=== PATIENT | female | born 1955 | race Caucasian/White ===

== ENCOUNTER → 2016-12-11 | Outpatient (CLI) | payer OTHER ==
[~2016-12-11] MED LIST: AMBIEN10 MG PO; AMOXICILLIN500 M2 PO; ANAPROX DS550 MG PO; ATENOLOL25 MG PO; ATIVAN1 MG PO; AUGMENTIN 875 M1 TAB PO; BENADRYL25 MG PO; BENZONATATE100 M1 PO; CALCIUM500 MG PO; CARAFATE1 GM PO; CIPRO500 MG PO; CIPRODEX 0.3%-7.5 ML OT; CITALOPRAM20 MG PO; COZAAR100 MG PO; CRESTOR40 MG PO; DARVOCET N 1001 TAB PO; DOXYCYCLINE MO100 MG PO; DUONEB 3 MG/3 ML3 M1 INH; FENOFIBRATE; FENOFIBRATE MI200 MG PO; FLEXERIL10 MG PO; FOSAMAX70 MG/75 M PO; Ferrex 150150 MG PO; IBU800 M1 PO; INDOCIN50 MG PO; LISINOPRIL20 MG PO; LORATADINE10 MG PO; MACROBID100 M1 PO; MELOXICAM15 MG PO; METOPROLOL SR25 MG PO; MIRALAX17 GM/DOSE PO; MIRALAX17 GM/PACK PO; MOTRIN800 MG PO; MYLICON,MYLANTA40 MG PO; Metformin Hydr500 MG PO; NASONEX0.05 MG/AC NS; OMEPRAZOLE MAGN20 M1 PO; PRAVASTATIN SOD40 MG PO; PREDNICOT10 MG PO; PREDNISONE10 MG PO; PREDNISONE20 M1 PO; PROAIR HFA0.09 MG/AC IH; PROAIR HFA8.5 GM INH; PROTONIX40 MG PO; REQUIP0.25 MG PO; REQUIP0.5 MG PO; REQUIP4 MG PO; ROBITUSSIN DM 101 OZ PO; SIMVASTATIN20 MG PO; SINGULAIR10 M1 PO; SINGULAIR10 MG PO; SPIRIVA18 MCG INH; SYMBICORT1 AE1 IH; SYMBICORT1 AE1 INH; SYNTHROID,LEVO75 MCG PO; VICODIN ES 7501 TAB PO; VIRTUSSIN A/C118 ML PO; VISTARIL25 MG PO; VISTARIL50 MG PO; VITAMIN C1 TAB PO; VITAMIN D31000 IU PO; VITAMIN D400 I1 PO; XANAX0.25 MG PO; ZOFRAN ODT8 MG PO; ZOLOFT100 MG PO; [UNRECOGNIZED DRUG - OTHER]
== END | disposition home or self-care (01) ==
LOC: RAD 16:33
DX: M25.551 Pain in right hip (principal)

== ENCOUNTER → 2017-01-22 | Outpatient (CLI) | payer OTHER | END | disposition home or self-care (01) | LOC: RAD 12:31 | DX: M25.552 Pain in left hip (principal) ==

== ENCOUNTER → 2017-03-11 | Outpatient (CLI) | payer OTHER ==
[2017-03-11 07:44] LABS: BASO % 0.9 % (0.0-1.0); EOS # 0.2 10*3/uL (0.0-0.4); EOS % 4.8 % (1.0-4.0); HEMATOCRIT 40.1 % (37.0-47.0); HEMOGLOBIN 12.8 g/dl (12.0-16.0); LYMPH # 1.6 10*3/uL (1.3-4.4); LYMPH % 36.2 % (27.0-41.0); MEAN CELL VOLUME 88.3 fl (81.0-99.0); MEAN CORPUSCULAR HGB 28.2 pg (27.0-31.0); MEAN CORPUSCULAR HGB CONC 31.9 g/dl (33.0-37.0); MEAN PLATELET VOLUME 10.1 fl (9.6-12.3); MONO # 0.6 10*3/uL (0.1-1.0); MONO % 12.7 % (3.0-9.0); NEUT % 44.9 % (47.0-73.0); PLATELET COUNT AUTOMATED 226 10*3/uL (130-400); RED BLOOD COUNT 4.54 10*6/uL (4.10-5.10); RED CELL DISTRI WIDTH 14.6 % (0-14.5); WHITE BLOOD COUNT 4.4 10*3/uL (4.8-10.8)
[2017-03-11 07:53] LABS: HEMOGLOBIN A1c 5.9 % (4.8-5.6)
[2017-03-11 08:11] LABS: ALKALINE PHOSPHATASE 46 U/L (45-117); BILIRUBIN, TOTAL 0.4 mg/dl (0.2-1.0); BUN 22 mg/dl (7-24); CARBON DIOXIDE 28 mmol/L (21-32); CHLORIDE 104 mmol/L (98-107); CHOLESTEROL 171 mg/dL (<200); EST GLOM FILT AFRICAN AMERICAN > 60 ml/min; GLUCOSE 105 mg/dL (65-99); HDL CHOLESTEROL 49 mg/dl (40-60); LDL CHOLESTEROL 84 mg/dL (9-159); POTASSIUM 4.3 mmol/L (3.5-5.1); SGOT/AST 30 IU/L (3-35); SGPT/ALT 28 U/L (12-78); SODIUM 144 mmol/L (136-145); TRIGLYCERIDES 190 mg/dl (<150); VLDL CHOLESTEROL 38 mg/dL (6-40)
== END | disposition home or self-care (01) ==
LOC: LAB 07:00 → CT 08:00
PROVIDERS: Family Medicine Adult Medicine
DX: I10 Essential (primary) hypertension (principal); E66.9 Obesity, unspecified; E03.9 Hypothyroidism, unspecified; F41.9 Anxiety disorder, unspecified; R41.3 Other amnesia; R53.1 Weakness

== ENCOUNTER → 2017-08-04 | Outpatient (CLI) | payer OTHER | END | disposition home or self-care (01) | LOC: ORTHO 03:04 | DX: M16.12 Unilateral primary osteoarthritis, left hip (principal) ==

== ENCOUNTER → 2017-10-01 | Outpatient (CLI) | payer OTHER | END | disposition home or self-care (01) | LOC: RAD 14:13 | DX: J44.9 Chronic obstructive pulmonary disease, unspecified (principal); R09.89 Other specified symptoms and signs involving the circulatory and respiratory systems ==

== ENCOUNTER → 2017-10-26 | Outpatient (CLI) | payer OTHER | END | disposition home or self-care (01) | LOC: RAD 13:12 | DX: M47.896 Other spondylosis, lumbar region (principal); M47.897 Other spondylosis, lumbosacral region; M25.552 Pain in left hip ==

== ENCOUNTER → 2017-11-04 | Outpatient (CLI) | payer OTHER | END | disposition home or self-care (01) | LOC: MRI 11:00 | DX: M25.552 Pain in left hip (principal) ==

== ENCOUNTER → 2017-12-17 | Outpatient (CLI) | payer OTHER | END | disposition home or self-care (01) | LOC: RAD 16:47 | DX: R06.02 Shortness of breath (principal); R07.89 Other chest pain; M54.89 Other dorsalgia ==

== ENCOUNTER 2017-12-29 19:31 | Inpatient (IN) | payer OTHER ==
[~2017-12-29] VITALS: Ht 154.9 cm; Wt 85.5 kg
--- NOTE | ~2017-12-29 | CON ---
[place], [place] REPORT OF CONSULTATION NAME: MARTHA SULTANA [facility] #: [id number] UNIT #: [id number] ROOM: 518 DOCTOR: UMESH ABEBE MDHAFSA BIRTHDATE: [birth year] DOS: 12/31/2017 PULMONARY CONSULTATION EVALUATION AND MANAGEMENT CONSULTATION REQUESTED BY: Sandeep Antony MD REASON FOR CONSULTATION: Ongoing acute exacerbation of COPD/bronchitis and other symptoms, failed outpatient treatment assessment. HISTORY OF PRESENT ILLNESS: This 62-year-old white female patient who has been known with past history of bronchial asthma or COPD. She has been seen in the office in the past, but not seen in the office in 2011. She was last time seen during her hospitalization for consultation in 2012. She has developed symptoms of increased cough, chest congestion and shortness of breath ongoing for about 3 weeks. She has been assessed by the primary care physician, treated with Augmentin initially, later on with another antibiotic as well as intramuscular dexamethasone. She has been seen in the [facility] as well and prescribed another course of antibiotics. The patient was given cough syrup and failed to respond to the treatment, but the symptoms have been noted more with increased frequency and intensity of coughing, shortness of breath as well as chest tightness reported. Cough has been noted with occasional sputum expectoration yellowish in color previously, currently noted as no sputum expectoration. Chest pain was described in the lower back of the chest worsened with deep breathing and excessive coughing. The pain was described moderate to severe on scale of 1-10 up to 7 or 8. It was described to be sharp or dull. REVIEW OF SYSTEMS: CONSTITUTIONAL SYMPTOMS: She has been noted symptoms of fatigue and tiredness. EYES: Denies any burning, redness, or tenderness. EAR, NOSE AND THROAT SYMPTOMS: No sore throat, hoarseness, otalgia, postnasal drainage or epistaxis. CARDIOVASCULAR: Denies angina pain, palpitation, edema or pain of the lower extremity at this time. The patient does have some palpitations previously on admission, which has been resolved. GASTROINTESTINAL: The patient was noted with couple of episodes of vomiting at home. There were no symptoms of nausea at this time. There were no symptoms of abdominal pain. There were no symptoms of hematochezia. GENITOURINARY: No dysuria, suprapubic pain, hematuria. MUSCULOSKELETAL: No acute joint pain, redness, or tenderness. SKIN: Denies abnormal lesions or rashes. CENTRAL NERVOUS SYSTEM: The patient was noted with dizziness previously, which has been resolved. There were symptoms of tingling sensation of the extremities or seizures. Remaining systems were reviewed. They were noted all negative. PAST MEDICAL HISTORY: 1. Known for bronchial asthma, severity unknown. 2. Questionable history of COPD. 3. General anxiety disorder. [place], [place] REPORT OF CONSULTATION NAME: MARTHA SULTANA UNIT #: [id number] ROOM: 518 DOCTOR: UMESH ABEBE MDHAFSA BIRTHDATE: [birth year] 4. Hypothyroidism. 5. Depression. 6. Dyslipidemia. 7. Osteoarthritis. 8. History of restless legs syndrome. PAST SURGICAL HISTORY: 1. Right oophorectomy. 2. Hysterectomy. 3. Cholecystectomy. 4. Cardiac catheterization. SOCIAL HISTORY: The patient is and lives at home, has 2 children. There was no history of alcohol use, illicit drug use. FAMILY HISTORY: The patient's father at 70 years due to complication of coronary artery disease. Mother at 69 due to complications of COPD. CURRENT MEDICATIONS: Administered for the patient was noted as use of Dulera, Requip, hydroxyzine, sertraline, vitamin D, fenofibrate, Singulair, atenolol, levothyroxine, IV Solu-Medrol 60 mg q.8h., Mucinex 1200 mg p.o. b.i.d., Levaquin, lorazepam, and other p.r.n. medications as well. DRUG ALLERGIES: NOTED ALLERGIES TO: 1. SULFA DRUG. 2. BIAXIN. PHYSICAL EXAMINATION: GENERAL: A 62-year-old female, who has been currently noted comfortable at this time, resting, sitting on the bed with nonproductive cough. On assessment, height of 5 feet 1 inch, weight 188 pounds, BMI 35.6. VITAL SIGNS: Recorded as normal temperature, respiratory rate 16-20, heart rate of 65-102, blood pressure 127/75-116/55. Pulse oxygen saturation noted on room air 92% saturation. HEENT: Shows head was atraumatic. Eyes nonicterus. NECK: Supple, short. CARDIOVASCULAR: S1, S2 is audible. LUNGS: Noted diffuse expiratory wheezing in the lungs with decreased breath sounds without any crackles. ABDOMEN: Soft, nontender. Bowel sounds present. EXTREMITIES: The patient was noted without any acute edema, clubbing or cyanosis. CENTRAL NERVOUS SYSTEM: Cranial nerves 2-12 intact. MUSCULOSKELETAL: Without an acute deformity. LABORATORY DATA: CBC that was done yesterday on admission noted normal WBC, hemoglobin and hematocrit. The CMP that was done on 12/29/2017; glucose of 122, BUN 17, creatinine 1.67, remaining CMP normal. Troponin normal. Influenza A and B, nasal washing antigen negative. The CBC on 12/30/2017 was still noted as normal. The PT, PTT were normal. BMP on 12/30/2017; glucose 157, BUN and [place], [place] REPORT OF CONSULTATION NAME: MARTHA SULTANA UNIT #: [id number] ROOM: 518 DOCTOR: UMESH ABEBE MD,HAFSA BIRTHDATE: [birth year] creatinine were normal. The CBC that was done this morning was still noted as normal results. BMP of the patient's glucose 122. Remaining BMP normal. Chest x-ray one-view, which was done in the Emergency Room reviewed from the PACS images without any acute abnormalities. IMPRESSION: 1. The patient who has been currently admitted to the hospital noted with acute persistent cough and shortness of breath, treated with 2 or 3 courses of antibiotics to respond as well as tapering prednisone previously. Currently, cough noted, most likely a suspicion from mucous impaction major airway interval developed in the last 3 weeks of acute respiratory symptoms. 2. Known history of bronchial asthma with acute exacerbation of bronchial asthma as well. 3. History of hypothyroidism. PLAN OF THERAPY: The patient will be continuing current antibiotics and bronchodilators. The respiratory viral panel to be done for the patient for assessment of any additional viral infection, which could be likely since the patient did not respond to the treatment. Influenza A and B, nasal washing and antigen testing was done yesterday and previously as well. Both were noted negative. The dose of corticosteroids will remain the same. She was agreeable with procedure, risk and benefit of procedure were discussed with the patient and she agreed with that. It will be done tomorrow morning. Thanks for allowing me to participate in care of this patient. HAFSA CALVO MD CM:CONSTR:REPORT OF CONSULTATION 1212 01/01/18 0134 interface
--- NOTE | ~2017-12-29 | PROC NOTE ---
[place], [place] PROCEDURE NOTE [id number] #: [id number] ROOM: 518 DOCTOR: HAFSA DOMÍNGUEZ MD BIRTHDATE: [birth year] DOS: 01/01/2018 PREOPERATIVE DIAGNOSES: Severe cough and wheezing. POSTOPERATIVE DIAGNOSES: Removal of the severe (mucus plug deeper) endobronchial subsegments bilaterally with finding of acute tracheobronchitis. PROCEDURE DESCRIPTION: Informed consent obtained for the patient. She was brought to the OR and placed in supine position. Conscious sedation administered by the Anesthesia Department. After achieving appropriate conscious sedation administered by the Anesthesia Department in supine position. The airway introduced into the mouth. Bronchoscope advanced to the airway into laryngeal area. Epiglottis and vocal cords were seen. Vocal cord for the patient were noted yellowish in color moving symmetrically with movements. Bronchoscope advanced to vocal and tracheal lumen shows moderate thick mucus secretion with some purulent secretions suctioned out all to the syed level. The right upper, right main, right lower, left upper, lingula, and lower lobe bronchi were all examined. The patient was noted with changes of acute bronchitis. The patient with inflammatory changes, severe plugs of the mucus of the patient noted in almost all of the endobronchial tree subsegments. The secretion was suctioned out by removing the mucous plug. The patient is sent for cultures. Procedure was well tolerated by the patient without difficulty. Postoperative finding will be discussed with the patient once the patient recovers the effects of acute sedation. No immediate treatment changes at this time will be necessary. HAFSA CALVO MD CM:PROCNOTE:PROCEDURE NOTE 1345 58 HAFSA ABEBE MD
--- NOTE | ~2017-12-29 | EKG ---
[place], [place] ELECTROCARDIOGRAM REPORT NAME: MARTHA SULTANA UNIT #: [id number] ROOM: 518 DOCTOR: UMESH ABEBE MD,HAFSA BIRTHDATE: [birth year] DOS: 12/31/2017 Electrocardiogram done on 12/31/2017 at 10:30 a.m. Normal sinus rhythm with heart rate of 65 beats per minute was recorded. Nonspecific ST-T changes for the patient was also noted. HAFSA CALVO MD CM:EKGRPT:ELECTROCARDIOGRAM REPORT [id number] HAFSA ABEBE MD
--- NOTE | ~2017-12-29 | PR ---
[place], [place] PROGRESS NOTE NAME: MARTHA SULTANA UNIT #: [id number] ROOM: 518 DOCTOR: HAFSA DOMÍNGUEZ MD BIRTHDATE: [birth year] DOS: 01/01/2018 PULMONARY PROGRESS NOTE SUBJECTIVE: She continued to have severe nonproductive cough, which was unchanged. Shortness of breath occurred with exertion. Denies symptoms of chest pain. Wheezing was also reported. Eventually, she was continued on the bronchodilators, intravenous corticosteroids as well as other medical management. She denies symptoms of nausea, vomiting, diarrhea, abdominal pain, or gastroesophageal reflux. Denies symptoms of dysuria, suprapubic pain. Denies any pain of the lower extremities. There is no headache. Remaining systems were reviewed, they were noted all negative. OBJECTIVE: VITAL SIGNS: For the patient recorded a normal temperature, respiratory rate 17, heart rate 78, blood pressure 140/62-127/86, pulse oxygen saturation on room air 92 percent saturation of oxygen. HEENT: Examination shows head was atraumatic. Eyes nonicterus. NECK: Supple. CARDIOVASCULAR: S1, S2 is audible. LUNGS: Noted generally decreased breath sounds, bilateral expiratory wheezing without any crackles. ABDOMEN: Soft, nontender with mild to moderate obesity. Bowel sounds present. EXTREMITIES: Without any acute edema, clubbing, or cyanosis. SKIN: Visible skin, no lesions or rashes. CENTRAL NERVOUS SYSTEM: No focal deficit. LABORATORY DATA: CBC on 01/01/2018, WBC count 11.1. Remaining CBC was normal. IMPRESSION: Persistent acute exacerbation of bronchial asthma with acute bronchitis, suspected mucus impaction, preop for the bronchoscopy to be done today. PLAN OF MANAGEMENT: Continue current dose of corticosteroids, bronchodilators, antibiotics, and all of the other medications as in progress. Any changes in modification treatment if necessary will be done after the bronchoscopy. [place], [place] PROGRESS NOTE NAME: MARTHA SULTANA UNIT #: [id number] ROOM: 518 DOCTOR: HAFSA DOMÍNGUEZ MD BIRTHDATE: [birth year] HAFSA CALVO MD CM:PNTRANS 1343 [id number] HAFSA ABEBE MD 01/02/18 0026 interface
--- NOTE | ~2017-12-29 | PR ---
[place], [place] PROGRESS NOTE [id number] #: [id number] ROOM: 518 DOCTOR: UMESH ABEBE MD,HAFSA BIRTHDATE: [birth year] DOS: 01/02/2018 SUBJECTIVE: She has been noted reduction in symptoms of shortness of breath and cough. The wheezing has been improving. The bronchoscopy done yesterday resulted in significant reduction of the respiratory symptom. The pain for the patient described in the chest wall related to cough, which was noted musculoskeletal. OBJECTIVE: VITAL SIGNS: For the patient shows a normal temperature, respiratory rate 19, heart rate of 76, blood pressure 121/58 this morning. The pulse oxygen saturation of the patient recorded as 90% on room air. HEENT: No new change. NECK: Supple. CARDIOVASCULAR: S1, S2 is audible. LUNGS: Noted without any crackles or wheezing this morning. Wheezing improved significantly after bronchoscopy. ABDOMEN: Soft, nontender. EXTREMITIES: Without any acute edema. LABORATORY DATA: Preliminary cultures of the bronchial washing noted as normal yvette. IMPRESSION: Musculoskeletal chest pain, resolving acute exacerbation of bronchial asthma, and acute bronchitis, progressive with current medical management. PLAN OF TREATMENT: No changes in the plan for this patient in pulmonary standpoint. I agree for home discharge for the patient. Order pain medication for pain, which ordered as naproxen p.r.n. use as well as a local heating pad. Tapering dose of prednisone and oral antibiotics. She was also ordered the test lung pulse. Outpatient followup was suggested. The patient was discharge. HAFSA CALVO MD CM:PNTRANS 1344 [id number] HAFSA ABEBE MD 01/02/18 1748 interface
[2017-12-29 19:34] VITALS: BP 143/44
[2017-12-29 20:17] LABS: BASO % 0.7 % (0.0-1.0); EOS % 0.7 % (1.0-4.0); HEMATOCRIT 40.6 % (37.0-47.0); LYMPH # 1.6 10*3/uL (1.3-4.4); LYMPH % 26.7 % (27.0-41.0); MEAN CELL VOLUME 86.6 fl (81.0-99.0); MEAN CORPUSCULAR HGB 27.7 pg (27.0-31.0); MEAN PLATELET VOLUME 9.3 fl (9.6-12.3); MONO # 0.5 10*3/uL (0.1-1.0); MONO % 7.8 % (3.0-9.0); NEUT # 3.8 10*3/uL (2.3-7.9); NEUT % 63.6 % (47.0-73.0); PLATELET COUNT AUTOMATED 255 10*3/uL (130-400); RED BLOOD COUNT 4.69 10*6/uL (4.10-5.10); RED CELL DISTRI WIDTH 14.6 % (0-14.5)
[2017-12-29 20:36] LABS: ALBUMIN 4.1 gm/dl (3.1-4.5); ALKALINE PHOSPHATASE 46 U/L (45-117); BUN 17 mg/dl (7-24); CHLORIDE 102 mmol/L (98-107); CREATININE 1.07 mg/dL (0.55-1.02); POTASSIUM 4.3 mmol/L (3.5-5.1); SGOT/AST 23 IU/L (3-35); SGPT/ALT 29 U/L (12-78); SODIUM 138 mmol/L (136-145); TOTAL PROTEIN 7.3 gm/dL (6.4-8.2)
[2017-12-29 20:38] LABS: TROPONIN I < 0.015 ng/ml (<0.045)
[2017-12-29 21:55] VITALS: BP 148/80
[2017-12-29 22:00] VITALS: BP 141/89
[2017-12-29] MEDS ORDERED: ADV 100/50 INH (22:49)
[2017-12-29] MEDS ORDERED: ATIVAN0.5 MG PO (22:50)
[2017-12-29] MEDS ORDERED: DOXYCYCLINE100 M3 PO (22:51)
[2017-12-30] VITALS: BP 127/75
[2017-12-30 06:57] LABS: BASO % 0.4 % (0.0-1.0); HEMOGLOBIN 12.7 g/dl (12.0-16.0); LYMPH # 1.1 10*3/uL (1.3-4.4); LYMPH % 18.6 % (27.0-41.0); MEAN CELL VOLUME 85.8 fl (81.0-99.0); MEAN CORPUSCULAR HGB 27.3 pg (27.0-31.0); MEAN CORPUSCULAR HGB CONC 31.8 g/dl (33.0-37.0); MEAN PLATELET VOLUME 9.6 fl (9.6-12.3); MONO # 0.1 10*3/uL (0.1-1.0); MONO % 1.8 % (3.0-9.0); NEUT # 4.4 10*3/uL (2.3-7.9); NEUT % 78.3 % (47.0-73.0); PLATELET COUNT AUTOMATED 267 10*3/uL (130-400); RED BLOOD COUNT 4.66 10*6/uL (4.10-5.10); RED CELL DISTRI WIDTH 14.4 % (0-14.5); WHITE BLOOD COUNT 5.7 10*3/uL (4.8-10.8)
[2017-12-30 07:14] LABS: BUN 19 mg/dl (7-24); CHLORIDE 102 mmol/L (98-107); CHOLESTEROL 170 mg/dL (<200); CREATININE 1.02 mg/dL (0.55-1.02); PHOSPHOROUS 3.8 mg/dL (2.5-4.9); POTASSIUM 4.1 mmol/L (3.5-5.1); SODIUM 136 mmol/L (136-145); TRIGLYCERIDES 99 mg/dl (<150); VLDL CHOLESTEROL 20 mg/dL (6-40)
[2017-12-30 07:16] LABS: ACT PARTIAL THROMBO TIME 22.7 SECONDS (20.8-31.5)
[2017-12-30 07:23] LABS: HDL CHOLESTEROL 53 mg/dl (40-60); LDL CHOLESTEROL 97 mg/dL (9-159)
[2017-12-30 08:00] VITALS: BP 128/57
[2017-12-30 08:22] LABS: VITAMIN D, 25-HYDROXY 20.8 ng/mL (30-100)
[2017-12-30 12:00] VITALS: BP 122/60
[2017-12-30 16:00] VITALS: BP 121/76
[2017-12-30 20:00] VITALS: BP 117/48
[2017-12-31] VITALS: BP 116/55
[2017-12-31 07:03] LABS: BASO % 0.2 % (0.0-1.0); HEMATOCRIT 39.4 % (37.0-47.0); HEMOGLOBIN 12.4 g/dl (12.0-16.0); LYMPH # 1.3 10*3/uL (1.3-4.4); LYMPH % 12.2 % (27.0-41.0); MEAN CELL VOLUME 86.6 fl (81.0-99.0); MEAN CORPUSCULAR HGB 27.3 pg (27.0-31.0); MEAN CORPUSCULAR HGB CONC 31.5 g/dl (33.0-37.0); MEAN PLATELET VOLUME 9.8 fl (9.6-12.3); MONO # 0.5 10*3/uL (0.1-1.0); MONO % 4.9 % (3.0-9.0); NEUT # 8.5 10*3/uL (2.3-7.9); NEUT % 81.7 % (47.0-73.0); PLATELET COUNT AUTOMATED 266 10*3/uL (130-400); RED BLOOD COUNT 4.55 10*6/uL (4.10-5.10); RED CELL DISTRI WIDTH 14.5 % (0-14.5); WHITE BLOOD COUNT 10.4 10*3/uL (4.8-10.8)
[2017-12-31 07:05] LABS: BUN 18 mg/dl (7-24); CHLORIDE 106 mmol/L (98-107); CREATININE 0.85 mg/dL (0.55-1.02); POTASSIUM 4.5 mmol/L (3.5-5.1); SODIUM 141 mmol/L (136-145)
[2017-12-31 08:00] VITALS: BP 119/63
[2017-12-31 12:00] VITALS: BP 124/52
[2017-12-31 16:00] VITALS: BP 114/56
[2017-12-31 20:00] VITALS: BP 139/54
[2018-01-01] VITALS (9 sets, daily range): BP systolic 119–152; BP diastolic 54–86
[2018-01-01 06:38] LABS: BASO % 0.3 % (0.0-1.0); EOS % 0.2 % (1.0-4.0); HEMATOCRIT 39.7 % (37.0-47.0); HEMOGLOBIN 12.8 g/dl (12.0-16.0); LYMPH # 1.8 10*3/uL (1.3-4.4); LYMPH % 16.2 % (27.0-41.0); MEAN CELL VOLUME 84.8 fl (81.0-99.0); MEAN CORPUSCULAR HGB 27.4 pg (27.0-31.0); MEAN CORPUSCULAR HGB CONC 32.2 g/dl (33.0-37.0); MEAN PLATELET VOLUME 9.9 fl (9.6-12.3); MONO # 0.7 10*3/uL (0.1-1.0); MONO % 6.6 % (3.0-9.0); NEUT # 8.3 10*3/uL (2.3-7.9); NEUT % 75.1 % (47.0-73.0); PLATELET COUNT AUTOMATED 264 10*3/uL (130-400); RED BLOOD COUNT 4.68 10*6/uL (4.10-5.10); RED CELL DISTRI WIDTH 14.2 % (0-14.5); WHITE BLOOD COUNT 11.1 10*3/uL (4.8-10.8)
[2018-01-02] VITALS: BP 145/73
[2018-01-02 08:00] VITALS: BP 129/60
[2018-01-02 12:00] VITALS: BP 121/58
[2018-01-02] MEDS ORDERED: VITAMIN D-32000 UNI1 PO (12:01)
[2018-01-02] MEDS ORDERED: LEVAQUIN500 M2 PO (12:01)
[2018-01-02] MEDS ORDERED: PREDNISONE10 MG PO (12:01)
[2018-01-02 15:04] LABS: ACID FAST SPEC PROCESSING Concentration (.)
[2018-01-05 01:05] LABS: ADENOVIRUS Negative (Negative); INFLUENZA A Negative (Negative); INFLUENZA B Negative (Negative); METAPNEUMOVIRUS Negative (Negative); PARAINFLUENZA 1 Negative (Negative); PARAINFLUENZA 2 Negative (Negative); PARAINFLUENZA 3 Negative (Negative); RHINOVIRUS Negative (Negative); RSV A Negative (Negative); RSV B Negative (Negative)
== END 2018-01-02 14:00 | disposition home or self-care (01) | DRG 191 ==
LOC: ED 19:31 → EDHOLD 21:14 → 5E 21:14
PROVIDERS: Internal Medicine Critical Care Medicine; Internal Medicine Nephrology; Student in an Organized Health Care Education/Training Program
PROC: 0BC98ZZ Extirpation of Matter from Lingula Bronchus, Via Natural or Artificial Opening Endoscopic (ICD-10-PCS; principal; 2018-01-01)
PROC: 0BC28ZZ Extirpation of Matter from Carina, Via Natural or Artificial Opening Endoscopic (ICD-10-PCS; principal; 2018-01-01)
PROC: 0BC88ZZ Extirpation of Matter from Left Upper Lobe Bronchus, Via Natural or Artificial Opening Endoscopic (ICD-10-PCS; principal; 2018-01-01)
PROC: 0BC58ZZ Extirpation of Matter from Right Middle Lobe Bronchus, Via Natural or Artificial Opening Endoscopic (ICD-10-PCS; principal; 2018-01-01)
PROC: 0BC48ZZ Extirpation of Matter from Right Upper Lobe Bronchus, Via Natural or Artificial Opening Endoscopic (ICD-10-PCS; principal; 2018-01-01)
PROC: 0BCB8ZZ Extirpation of Matter from Left Lower Lobe Bronchus, Via Natural or Artificial Opening Endoscopic (ICD-10-PCS; principal; 2018-01-01)
PROC: 0BC68ZZ Extirpation of Matter from Right Lower Lobe Bronchus, Via Natural or Artificial Opening Endoscopic (ICD-10-PCS; principal; 2018-01-01)
DX: J44.0 Chronic obstructive pulmonary disease with (acute) lower respiratory infection (principal); J45.901 Unspecified asthma with (acute) exacerbation; E66.01 Morbid (severe) obesity due to excess calories; J44.1 Chronic obstructive pulmonary disease with (acute) exacerbation; J30.2 Other seasonal allergic rhinitis; I10 Essential (primary) hypertension; F41.9 Anxiety disorder, unspecified; D72.810 Lymphocytopenia; D72.818 Other decreased white blood cell count; R73.9 Hyperglycemia, unspecified; E78.2 Mixed hyperlipidemia; G47.00 Insomnia, unspecified; E55.9 Vitamin D deficiency, unspecified; J20.9 Acute bronchitis, unspecified; M19.90 Unspecified osteoarthritis, unspecified site; E03.9 Hypothyroidism, unspecified; G25.81 Restless legs syndrome; F32.9 Major depressive disorder, single episode, unspecified; Z79.51 Long term (current) use of inhaled steroids; Z79.899 Other long term (current) drug therapy; Z88.1 Allergy status to other antibiotic agents; Z88.2 Allergy status to sulfonamides; Z90.710 Acquired absence of both cervix and uterus; Z90.722 Acquired absence of ovaries, bilateral; Z90.49 Acquired absence of other specified parts of digestive tract; Z82.49 Family history of ischemic heart disease and other diseases of the circulatory system; Z83.6 Family history of other diseases of the respiratory system; Z80.8 Family history of malignant neoplasm of other organs or systems

== ENCOUNTER → 2018-01-13 | Outpatient (CLI) | payer OTHER ==
[~2018-01-13] MED LIST changes: +ADV 100/50 INH; +ATIVAN0.5 MG PO; +DOXYCYCLINE100 M3 PO; +LEVAQUIN500 M2 PO; +VITAMIN D-32000 UNI1 PO
== END | disposition home or self-care (01) ==
LOC: RAD 17:19
DX: J40 Bronchitis, not specified as acute or chronic (principal); R10.9 Unspecified abdominal pain; R09.89 Other specified symptoms and signs involving the circulatory and respiratory systems; I10 Essential (primary) hypertension

== ENCOUNTER → 2018-06-10 | Outpatient (CLI) | payer OTHER ==
[~2018-06-10] MED LIST changes: +CEFDINIR300 MG PO; +FLONASE ALLERG9.9 ML NAS; +NORCO 5-325 TA1 EACH PO
== END | disposition home or self-care (01) ==
LOC: CT 11:00
DX: J32.9 Chronic sinusitis, unspecified (principal); J34.2 Deviated nasal septum; R22.0 Localized swelling, mass and lump, head; Z98.818 Other dental procedure status

== ENCOUNTER → 2018-08-26 | Outpatient (CLI) | payer OTHER | END | disposition home or self-care (01) | LOC: MAMMO 02:31 | DX: Z12.31 Encounter for screening mammogram for malignant neoplasm of breast (principal) ==

== ENCOUNTER → 2018-09-23 | Outpatient (CLI) | payer OTHER | END | disposition home or self-care (01) | LOC: MAMMO 02:19 | DX: N63.10 Unspecified lump in the right breast, unspecified quadrant (principal) ==

== ENCOUNTER → 2019-05-31 | Outpatient (CLI) | payer OTHER ==
[~2019-05-31] MED LIST changes: +AMOXICILLIN500 M3 PO; +CYCLOBENZAPRINE10 MG PO; +DOXYCYCLINE HY100 M3 PO; +LEVAQUIN750 M1 PO; +Motrin,Rufen800 MG PO; +TRAZODONE100 MG PO
== END | disposition home or self-care (01) ==
LOC: RAD 16:36
DX: J20.9 Acute bronchitis, unspecified (principal); R50.9 Fever, unspecified; R00.1 Bradycardia, unspecified

== ENCOUNTER 2019-06-06 15:02 | Inpatient (IN) | payer OTHER ==
[2019-06-06] VITALS (8 sets, daily range): BP systolic 119–145; BP diastolic 51–76
[~2019-06-06] VITALS: Ht 157 cm; Wt 84.0 kg
--- NOTE | ~2019-06-06 | EKG ---
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
--- NOTE | ~2019-06-06 | ST ---
[place], [place] EXERCISE STRESS TEST REPORT [id number] UN[facility] #: [id number] ROOM: 521 DOCTOR: RICHARD TORREZ,FALLON BIRTHDATE: [birth year] DOS: 06/07/2019 LEXISCAN STRESS. REASON FOR TEST: Chest pain and hypertension. PHYSICAL EXAMINATION NECK: Supple. LUNGS: Clear anteriorly. HEART: Regular rhythm. PROTOCOL: Lexiscan protocol. Maximum heart rate 101, peak blood pressure 114/60. SYMPTOMS: The patient had resting chest pain scale of 8 x 10, which is unchanged during Lexiscan infusion EKG: No new ischemia compared to baseline EKG. CONCLUSION: Clinically, the patient has no new chest pain compared to resting chest pain. KG is nonischemic. POST-STRESS COMPLICATIONS: None. The patient received a total of 0.4 mg Lexiscan. FALLON RAMOS MD CM:STRESS:EXERCISE STRESS TEST REPORT [id number] FALLON RAMOS MD
--- NOTE | ~2019-06-06 | EKG ---
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: Les Foreman : 1955 Requested By: ARLETTE PERSON Order Number: [id number] Reading MD: Eder Santana Measurements Intervals [place] Rate: 76 P: -42 ND: 165 QRS: -51 QRSD: 90 T: 0 QT: 383 QTc: 431 Interpretive Statements Sinus rhythm Abnormal R-wave progression, early transition LVH by voltage Inferior infarct, old Baseline wander in lead(s) V6 Compared to ECG 05/09/2018 21:12:43 Left ventricular hypertrophy now present Myocardial infarct finding now present Electronically Signed On 06-08-2019 8:09:16 PDT by Eder Santana CM:EKGRPT:ELECTROCARDIOGRAM REPORT [id number] ARLETTE EDDY DRAFT REPORT ARLETTE PERSON M.D.
--- NOTE | ~2019-06-06 | EKG ---
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
[~2019-06-06 15:02] MED LIST changes: -AMOXICILLIN500 M3 PO; -CYCLOBENZAPRINE10 MG PO; -DOXYCYCLINE HY100 M3 PO; -LEVAQUIN750 M1 PO; -Motrin,Rufen800 MG PO; -TRAZODONE100 MG PO
[2019-06-06 15:50] LABS: BASO % 0.6 % (0.0-1.0); EOS # 0.2 10*3/uL (0.0-0.4); EOS % 2.3 % (1.0-4.0); HEMATOCRIT 42.4 % (37.0-47.0); HEMOGLOBIN 13.6 g/dl (12.0-16.0); LYMPH # 2.2 10*3/uL (1.3-4.4); LYMPH % 33.5 % (27.0-41.0); MEAN CELL VOLUME 93.2 fl (81.0-99.0); MEAN CORPUSCULAR HGB 29.9 pg (27.0-31.0); MEAN CORPUSCULAR HGB CONC 32.1 g/dl (33.0-37.0); MEAN PLATELET VOLUME 9.7 fl (9.6-12.3); MONO # 0.6 10*3/uL (0.1-1.0); MONO % 9.1 % (3.0-9.0); NEUT # 3.6 10*3/uL (2.3-7.9); NEUT % 53.9 % (47.0-73.0); PLATELET COUNT AUTOMATED 228 10*3/uL (130-400); RED BLOOD COUNT 4.55 10*6/uL (4.10-5.10); RED CELL DISTRI WIDTH 14.1 % (0-14.5); WHITE BLOOD COUNT 6.6 10*3/uL (4.8-10.8)
[2019-06-06 16:01] LABS: ACT PARTIAL THROMBO TIME 26.2 SECONDS (20.0-32.1)
[2019-06-06 16:06] LABS: ALBUMIN 3.9 gm/dl (3.1-4.5); ALKALINE PHOSPHATASE 47 U/L (45-117); BUN 16 mg/dl (7-24); CHLORIDE 105 mmol/L (98-107); CREATININE 0.94 mg/dL (0.55-1.02); SGOT/AST 13 IU/L (3-35); SGPT/ALT 26 U/L (12-78); SODIUM 139 mmol/L (136-145)
[2019-06-06 16:26] LABS: TROPONIN I < 0.015 ng/ml (<0.045)
--- NOTE | 2019-06-06 17:16 | NUR ---
PT REMAINS W/O ACUTE DISTRESS NOTED AWAITING ALL RESULTS FOR ADDITIONAL PLAN OF CARE,SAFETY PRECAUTIONS INTACT AND CALL LIGHT WITHIN REACH,WILL CONTINUE TO MONITOR.
[2019-06-06] MEDS ORDERED: DOXYCYCLINE HY100 M3 PO (17:44)
[2019-06-06] MEDS ORDERED: AMOXICILLIN500 M3 PO (17:45)
[2019-06-06] MEDS ORDERED: TRAZODONE100 MG PO (17:45)
--- NOTE | 2019-06-06 17:52 | NUR ---
PT PROVIDED NITRO PATCH 1 IN D/T PAIN CONTINUED(VICODIN INEFFECTIVE),FAMILY @ BEDSIDE.
--- NOTE | 2019-06-06 18:04 | NUR ---
PT STATING C/P DOWN FROM AN 8 TO A 6 ON 1-10 SCALE @ THIS TIME.
--- NOTE | 2019-06-06 18:48 | NUR ---
A 64, admitted to , under the services of JAMES Lopez DO with a diagnosis of CHEST PAIN. Chief complaint is CHEST PAIN. Patient arrived via being carried from ER. Monitor applied. Initial assessment completed. Vital signs taken and recorded. JAMES LOPEZ DO notified of admission to the unit. Orders received. See assessment for past medical history, medications and allergies. Patient and/or family oriented to unit. [facility] visitation policy reviewed. Clothing/patient valuable form completed. MINOR SAL
--- NOTE | 2019-06-06 23:40 | NUR ---
PT IS SITTING UP IN BED AT THIS TIME. THERE ARE NO OVERT SYMPTOMS OF DISTRESS NOTED. RESPS ARE EASY AND NONLABORED. CALL LIGHT WITHIN REACH, WILL CONTINUE TO MONITOR.
[2019-06-07] VITALS (7 sets, daily range): BP systolic 102–119; BP diastolic 42–84
[2019-06-07 06:53] LABS: BASO # 0.1 10*3/uL (0.0-0.1); BASO % 0.9 % (0.0-1.0); EOS # 0.2 10*3/uL (0.0-0.4); EOS % 2.6 % (1.0-4.0); HEMATOCRIT 41.5 % (37.0-47.0); HEMOGLOBIN 13.2 g/dl (12.0-16.0); LYMPH % 34.5 % (27.0-41.0); MEAN CELL VOLUME 94.5 fl (81.0-99.0); MEAN CORPUSCULAR HGB 30.1 pg (27.0-31.0); MEAN CORPUSCULAR HGB CONC 31.8 g/dl (33.0-37.0); MEAN PLATELET VOLUME 9.8 fl (9.6-12.3); MONO # 0.6 10*3/uL (0.1-1.0); MONO % 10.5 % (3.0-9.0); NEUT % 50.8 % (47.0-73.0); PLATELET COUNT AUTOMATED 225 10*3/uL (130-400); RED BLOOD COUNT 4.39 10*6/uL (4.10-5.10); RED CELL DISTRI WIDTH 14.2 % (0-14.5); WHITE BLOOD COUNT 5.8 10*3/uL (4.8-10.8)
[2019-06-07 07:32] LABS: CHLORIDE 105 mmol/L (98-107); POTASSIUM 4.1 mmol/L (3.5-5.1); SODIUM 141 mmol/L (136-145)
[2019-06-07 07:47] LABS: ALBUMIN 3.6 gm/dl (3.1-4.5); ALKALINE PHOSPHATASE 52 U/L (45-117); BUN 19 mg/dl (7-24); CHOLESTEROL 227 mg/dL (<200); CREATININE 1.01 mg/dL (0.55-1.02); HDL CHOLESTEROL 40 mg/dl (40-60); LDL CHOLESTEROL 143 mg/dL (9-159); PHOSPHOROUS 4.2 mg/dL (2.5-4.9); SGOT/AST 12 IU/L (3-35); SGPT/ALT 21 U/L (12-78); TOTAL PROTEIN 6.8 gm/dL (6.4-8.2); TRIGLYCERIDES 221 mg/dl (<150); VLDL CHOLESTEROL 44 mg/dL (6-40)
--- NOTE | 2019-06-07 08:52 | NUR ---
MORPHINE GIVEN FOR C/O CHEST PAIN. RATES 8/10 ON PAIN. WILL MONITOR
--- NOTE | 2019-06-07 09:03 | NUR ---
OFF FLOOR FOR STRESS TEST.
--- NOTE | 2019-06-07 10:23 | NUR ---
INFORMED CONSENT SIGNED FOR LEXISCAN STRESS TEST WITH DR. RAMOS. RESTING EKG NSR, HR 83 BP 100/64. PULSE OX 99% AND BREATH SOUNDS DECREASED IN LEFT BASE, RIGHT CLEAR. COMPLETED ONE MINUTE OF LEXISCAN PROTOCOL RECEIVING LEXISCAN 0.4MG OVER 10 SEC[address] NO ARRHYTHMI[address] OR ST CHANGES NOTED. PT C/O SOB AND NO CHANGE IN CHEST DISCOMFORT. LAST RECOVERY HR 94, BP 114/60. WAITING NUCLEAR SCANNING IN STABLE CONDITION.
--- NOTE | 2019-06-07 11:47 | NUR ---
NORCO GIVEN FOR C/O CHEST PAIN. RATES 8/10 ON PAIN SCALE. WILL MONITOR.
--- NOTE | 2019-06-07 12:50 | NUR ---
BELEM NOT EFFECTIVE PER PT. WILL NOTIFY
--- NOTE | 2019-06-07 13:18 | NUR ---
Booking Clerk in to talk to patient. Patient states lives at HOME with . There are FEW steps in the home. Physician: NGHIA WASHINGTON Pharmacy: [facility] health services: NONE Patient's level of ADLs: INDEPENDENT Patient has working utilities: YES DME: [facility] Follow-up physician's appointment after d/c: WILL BE MADE BY HOSPITAL NURSE DIRECTOR ON DISCHARGE Does patient want to access PORTAL?: NO Discharge plan PT STATES SHE LIVES AT HOME WITH AND IS INDEPENDENT IN HER ADLS. STATES SHE WILL RETURN HOME ON DISCHARGE AND WILL HAVE NO NEW NEEDS.. SIMBA STOKES
--- NOTE | 2019-06-07 14:03 | NUR ---
TORADOL GIVEN PER ORDERS FOR C/O CHEST PAIN. WILL MONITOR.
--- NOTE | 2019-06-07 15:10 | NUR ---
TORADOL EFFECTIVE PER PT.
--- NOTE | 2019-06-07 17:38 | NUR ---
MORPHINE GIVEN FOR C/O CHEST PAIN. RATES 6/10 ON PAIN SCALE. WILL MONITOR.
--- NOTE | 2019-06-07 20:06 | NUR ---
SPOKE TO ABOUT PATIENT'S REQUEST FOR TORADOL, ONE TIME DOSE GIVEN EARLIER THIS AFTERNOON WAS MORE EFFECTIVE THAN IV MORPHINE/PO NORCO. DISCUSSED RENAL FUNCITION/PERTINENT LABS. ALSO DISCUSSED PO NORCO GIVEN AT 1939. INSTRUCTED TO LET KNOW IF PO NORCO INEFFECTIVE.
--- NOTE | 2019-06-07 20:46 | NUR ---
NOTIFIED OF NORCO INEFFECTIVE PER PT. NEW ORDER RECEIVED FOR IV TORADOL 15 MG X1 DOSE NOW.
[2019-06-08] VITALS: BP 119/68
--- NOTE | 2019-06-08 01:03 | NUR ---
IV MORPHINE ADMINISTERED SLOWLY PER PRN ORDER FOR C/O MISTERNAL CP RATED 6/10. WILL MONITOR EFFECTIVENESS. CALL LIGHT IN REACH.
--- NOTE | 2019-06-08 01:49 | NUR ---
EARLIER MEDICATION APPEARS EFFECTIVE, PT ASLEEP IN BED AT THIS TIME. WILL MONITOR. CALL LIGHT IN REACH.
--- NOTE | 2019-06-08 06:29 | NUR ---
BRANDY PATRICIA ADMINSITERED FOR MIDSTERNAL CP RATED 4/10. WILL MONITOR. CALL LIGHT IN REACH.
--- NOTE | 2019-06-08 07:20 | NUR ---
EARLIER MEDICATIONS EFFECTIVE PER PT. WILL MONITOR. CALL LIGHT IN REACH.
[2019-06-08 08:00] VITALS: BP 132/60
--- NOTE | 2019-06-08 10:04 | NUR ---
MORPHINE GIVEN FOR C/O CHEST DISCOMFORT. RATES 5/10 ON PAIN SCALE. WILL MONITOR.
[2019-06-08] MEDS ORDERED: PREDNISONE10 MG PO (10:21)
[2019-06-08] MEDS ORDERED: CYCLOBENZAPRINE10 MG PO (10:21)
[2019-06-08] MEDS ORDERED: LEVAQUIN750 M1 PO (10:21)
--- NOTE | 2019-06-08 11:53 | NUR ---
Discharge instructions reviewed with patient/family. Patient receptive and verbalizes understanding. Follow-up care TO BE arranged BY PATIENT. Written instructions given to patient/family. DISCCHARGE COMPLETED BY RANDOLPH. ORALIA MCCLELLAN
== END 2019-06-08 11:55 | disposition home or self-care (01) | DRG 206 ==
LOC: ED 15:02 → EDHOLD 17:44 → 5E 17:44
PROVIDERS: Emergency Medicine; Student in an Organized Health Care Education/Training Program; ADMIT Internal Medicine
DX: M94.0 Chondrocostal junction syndrome [Tietze] (principal); J44.1 Chronic obstructive pulmonary disease with (acute) exacerbation; E78.2 Mixed hyperlipidemia; I10 Essential (primary) hypertension; E66.01 Morbid (severe) obesity due to excess calories; E03.9 Hypothyroidism, unspecified; J30.2 Other seasonal allergic rhinitis; F32.5 Major depressive disorder, single episode, in full remission; G47.00 Insomnia, unspecified; E55.9 Vitamin D deficiency, unspecified; F41.9 Anxiety disorder, unspecified; D72.810 Lymphocytopenia; E78.5 Hyperlipidemia, unspecified; Z90.710 Acquired absence of both cervix and uterus; Z90.49 Acquired absence of other specified parts of digestive tract; Z90.722 Acquired absence of ovaries, bilateral; Z82.5 Family history of asthma and other chronic lower respiratory diseases; Z82.49 Family history of ischemic heart disease and other diseases of the circulatory system; Z88.2 Allergy status to sulfonamides; Z88.1 Allergy status to other antibiotic agents; Z79.899 Other long term (current) drug therapy; Z79.890 Hormone replacement therapy; Z80.8 Family history of malignant neoplasm of other organs or systems; Z68.34 Body mass index [BMI] 34.0-34.9, adult

== ENCOUNTER → 2019-06-23 | Outpatient (CLI) | payer OTHER ==
[~2019-06-23] MED LIST changes: +AMOXICILLIN500 M3 PO; +CYCLOBENZAPRINE10 MG PO; +DOXYCYCLINE HY100 M3 PO; +LEVAQUIN750 M1 PO; +Motrin,Rufen800 MG PO; +TRAZODONE100 MG PO
== END | disposition home or self-care (01) ==
LOC: RAD 11:17
DX: J44.9 Chronic obstructive pulmonary disease, unspecified (principal)

== ENCOUNTER 2019-06-29 14:02 | Emergency (ER) | payer OTHER ==
[~2019-06-29] VITALS: Ht 180.3 cm; Wt 84.8 kg
[~2019-06-29 14:02] MED LIST changes: -Motrin,Rufen800 MG PO
[2019-06-29 14:37] LABS: BASO % 0.7 % (0.0-1.0); EOS # 0.2 10*3/uL (0.0-0.4); EOS % 4.3 % (1.0-4.0); HEMATOCRIT 40.9 % (37.0-47.0); HEMOGLOBIN 13.1 g/dl (12.0-16.0); LYMPH # 1.4 10*3/uL (1.3-4.4); LYMPH % 31.4 % (27.0-41.0); MEAN CELL VOLUME 95.1 fl (81.0-99.0); MEAN CORPUSCULAR HGB 30.5 pg (27.0-31.0); MEAN PLATELET VOLUME 10.2 fl (9.6-12.3); MONO # 0.3 10*3/uL (0.1-1.0); MONO % 7.7 % (3.0-9.0); NEUT # 2.5 10*3/uL (2.3-7.9); NEUT % 55.4 % (47.0-73.0); PLATELET COUNT AUTOMATED 214 10*3/uL (130-400); RED CELL DISTRI WIDTH 14.6 % (0-14.5); WHITE BLOOD COUNT 4.4 10*3/uL (4.8-10.8)
[2019-06-29 14:57] LABS: ALBUMIN 3.8 gm/dl (3.1-4.5); ALKALINE PHOSPHATASE 41 U/L (45-117); BUN 18 mg/dl (7-24); CHLORIDE 111 mmol/L (98-107); CREATININE 0.97 mg/dL (0.55-1.02); POTASSIUM 3.7 mmol/L (3.5-5.1); SGOT/AST 27 IU/L (3-35); SGPT/ALT 31 U/L (12-78); SODIUM 142 mmol/L (136-145); TOTAL PROTEIN 6.5 gm/dL (6.4-8.2)
[2019-06-29 15:00] LABS: TROPONIN I < 0.015 ng/ml (<0.045)
[2019-06-29 15:04] LABS: ACT PARTIAL THROMBO TIME 25.6 SECONDS (20.0-32.1); INTERNATIONAL NORM RATIO 0.9 (2.0-3.5)
[2019-06-29] MEDS ORDERED: Motrin,Rufen800 MG PO (20:15)
[2019-06-29] MEDS ORDERED: NORCO 5-325 TA1 EACH PO (20:15)
[2019-06-29 20:23] VITALS: BP 152/83
== END 2019-06-29 21:07 | disposition home or self-care (01) ==
LOC: ED 14:02
PROVIDERS: Emergency Medicine
DX: J18.9 Pneumonia, unspecified organism (principal); R07.81 Pleurodynia; J44.9 Chronic obstructive pulmonary disease, unspecified; I10 Essential (primary) hypertension; E03.9 Hypothyroidism, unspecified; E66.01 Morbid (severe) obesity due to excess calories; E78.2 Mixed hyperlipidemia; Z88.2 Allergy status to sulfonamides; Z88.1 Allergy status to other antibiotic agents; Z79.2 Long term (current) use of antibiotics; Z79.899 Other long term (current) drug therapy; Z90.710 Acquired absence of both cervix and uterus; Z90.49 Acquired absence of other specified parts of digestive tract

== ENCOUNTER → 2019-08-09 | Outpatient (CLI) | payer OTHER ==
[~2019-08-09] MED LIST changes: +Motrin,Rufen800 MG PO
[2019-08-10 15:07] LABS: EPSTEIN-BARR VCA IGG AB >600.0 U/mL (0.0-17.9); EPSTEIN-BARR VCA IGM AB <36.0 U/mL (0.0-35.9)
[2019-08-13 00:06] LABS: CMV QNT Negative (Negative)
== END | disposition home or self-care (01) ==
LOC: LAB 12:54
PROVIDERS: Family Medicine
DX: R53.83 Other fatigue (principal)

== ENCOUNTER → 2019-10-26 | Outpatient (CLI) | payer OTHER ==
[2019-10-26 13:08] LABS: EOS # 0.1 10*3/uL (0.0-0.4); EOS % 2.1 % (1.0-4.0); HEMATOCRIT 41.9 % (37.0-47.0); HEMOGLOBIN 13.4 g/dl (12.0-16.0); LYMPH # 1.4 10*3/uL (1.3-4.4); LYMPH % 35.3 % (27.0-41.0); MEAN CELL VOLUME 93.9 fl (81.0-99.0); MEAN PLATELET VOLUME 10.5 fl (9.6-12.3); MONO # 0.4 10*3/uL (0.1-1.0); MONO % 10.9 % (3.0-9.0); NEUT # 1.9 10*3/uL (2.3-7.9); NEUT % 50.2 % (47.0-73.0); PLATELET COUNT AUTOMATED 202 10*3/uL (130-400); RED BLOOD COUNT 4.46 10*6/uL (4.10-5.10); RED CELL DISTRI WIDTH 13.2 % (0-14.5); WHITE BLOOD COUNT 3.9 10*3/uL (4.8-10.8)
[2019-10-26 13:33] LABS: ALKALINE PHOSPHATASE 52 U/L (45-117); BUN 19 mg/dl (7-24); CHLORIDE 106 mmol/L (98-107); CHOLESTEROL 223 mg/dL (<200); HDL CHOLESTEROL 49 mg/dl (40-60); IRON 104 ug/dL (50-170); LDL CHOLESTEROL 147 mg/dL (9-159); SGOT/AST 20 IU/L (3-35); SGPT/ALT 33 U/L (12-78); SODIUM 139 mmol/L (136-145); TOTAL IRON BINDING CAPACITY 407 ug/dl (250-450); TOTAL PROTEIN 7.2 gm/dL (6.4-8.2); TRIGLYCERIDES 136 mg/dl (<150); VLDL CHOLESTEROL 27 mg/dL (6-40)
[2019-10-26 13:51] LABS: FREE T4 1.17 ng/dl (0.76-1.46)
[2019-10-26 14:06] LABS: FERRITIN 17.8 ng/mL (10.0-291.0); VITAMIN D, 25-HYDROXY 27.4 ng/mL (30-100)
== END | disposition home or self-care (01) ==
LOC: LAB 12:30
PROVIDERS: Nurse Practitioner Primary Care
DX: D50.9 Iron deficiency anemia, unspecified (principal); E03.9 Hypothyroidism, unspecified; E55.9 Vitamin D deficiency, unspecified

== ENCOUNTER → 2019-11-10 | Outpatient (CLI) | payer OTHER | END | disposition home or self-care (01) | LOC: MAMMO 00:26 | DX: N63.20 Unspecified lump in the left breast, unspecified quadrant (principal); N63.10 Unspecified lump in the right breast, unspecified quadrant; D50.9 Iron deficiency anemia, unspecified; E03.9 Hypothyroidism, unspecified; E55.9 Vitamin D deficiency, unspecified ==

== ENCOUNTER → 2019-11-25 | Outpatient (CLI) | payer OTHER | END | disposition home or self-care (01) | LOC: ORTHO 00:42 | DX: M70.62 Trochanteric bursitis, left hip (principal); M70.61 Trochanteric bursitis, right hip ==

== ENCOUNTER → 2020-02-09 | Outpatient (CLI) | payer OTHER | END | disposition home or self-care (01) | LOC: RAD 10:23 | DX: Z01.818 Encounter for other preprocedural examination (principal); M16.12 Unilateral primary osteoarthritis, left hip ==

== ENCOUNTER → 2020-09-17 | Outpatient (CLI) | payer OTHER ==
[~2020-09-17] MED LIST changes: +CYCLOBENZAPRINE5 M3 PO; +DEXAMETHASONE6 MG PO; +MUCINEX DM 30/61 TAB PO; +VENTOLIN 02.5 MG/3 M INH; +ZITHROMAX250 MG PO
== END | disposition home or self-care (01) ==
LOC: COVID19 15:17
PROVIDERS: ATTEND Nurse Practitioner Family
DX: U07.1 COVID-19 (principal)

== ENCOUNTER 2020-09-22 17:05 | Emergency (ER) | payer OTHER ==
[~2020-09-22] VITALS: Ht 154.9 cm; Wt 86.2 kg
[~2020-09-22 17:05] MED LIST changes: -CYCLOBENZAPRINE5 M3 PO; -DEXAMETHASONE6 MG PO; -MUCINEX DM 30/61 TAB PO; -VENTOLIN 02.5 MG/3 M INH; -ZITHROMAX250 MG PO
[2020-09-22 18:09] VITALS: BP 148/60
[2020-09-22] MEDS ORDERED: MUCINEX DM 30/61 TAB PO (18:32)
[2020-09-22] MEDS ORDERED: CYCLOBENZAPRINE5 M3 PO (18:32)
[2020-09-22] MEDS ORDERED: DEXAMETHASONE6 MG PO (18:32)
[2020-09-22] MEDS ORDERED: VENTOLIN 02.5 MG/3 M INH (18:33)
== END 2020-09-22 19:15 | disposition home or self-care (01) ==
LOC: ED 17:05
DX: U07.1 COVID-19 (principal); R09.1 Pleurisy; J44.9 Chronic obstructive pulmonary disease, unspecified; F41.9 Anxiety disorder, unspecified; F32.9 Major depressive disorder, single episode, unspecified; I10 Essential (primary) hypertension; E03.9 Hypothyroidism, unspecified; E66.01 Morbid (severe) obesity due to excess calories; E78.00 Pure hypercholesterolemia, unspecified; Z88.2 Allergy status to sulfonamides; Z88.1 Allergy status to other antibiotic agents; Z79.899 Other long term (current) drug therapy; Z79.2 Long term (current) use of antibiotics; Z98.61 Coronary angioplasty status; Z90.710 Acquired absence of both cervix and uterus; Z90.49 Acquired absence of other specified parts of digestive tract

== ENCOUNTER 2020-09-25 16:38 | Emergency (ER) | payer OTHER ==
[~2020-09-25] VITALS: Ht 154.9 cm; Wt 86.2 kg
[~2020-09-25 16:38] MED LIST changes: +CYCLOBENZAPRINE5 M3 PO; +DEXAMETHASONE6 MG PO; +MUCINEX DM 30/61 TAB PO; +VENTOLIN 02.5 MG/3 M INH
[2020-09-25 17:36] LABS: BASO % 0.3 % (0.0-1.0); HEMATOCRIT 41.2 % (37.0-47.0); LYMPH % 15.2 % (27.0-41.0); MEAN CELL VOLUME 88.8 fl (81.0-99.0); MEAN CORPUSCULAR HGB 28.4 pg (27.0-31.0); MEAN PLATELET VOLUME 9.4 fl (9.6-12.3); MONO # 0.5 10*3/uL (0.1-1.0); MONO % 8.1 % (3.0-9.0); NEUT # 4.8 10*3/uL (2.3-7.9); PLATELET COUNT AUTOMATED 230 10*3/uL (130-400); RED BLOOD COUNT 4.64 10*6/uL (4.10-5.10); WHITE BLOOD COUNT 6.4 10*3/uL (4.8-10.8)
[2020-09-25 17:54] LABS: ALBUMIN 3.7 gm/dl (3.1-4.5); ALKALINE PHOSPHATASE 51 U/L (45-117); BUN 16 mg/dl (7-24); CHLORIDE 107 mmol/L (98-107); CREATININE 0.94 mg/dL (0.55-1.02); POTASSIUM 3.9 mmol/L (3.5-5.1); SGOT/AST 15 IU/L (3-35); SGPT/ALT 23 U/L (12-78); SODIUM 138 mmol/L (136-145); TOTAL PROTEIN 7.1 gm/dL (6.4-8.2)
[2020-09-25 17:55] LABS: TROPONIN I < 0.015 ng/ml (<0.045)
[2020-09-25] MEDS ORDERED: ZITHROMAX250 MG PO (21:16)
[2020-09-25 21:24] VITALS: BP 131/80
== END 2020-09-26 00:01 | disposition home or self-care (01) ==
LOC: ED 16:38
PROVIDERS: Nurse Practitioner Family
DX: U07.1 COVID-19 (principal); Z88.2 Allergy status to sulfonamides; Z88.1 Allergy status to other antibiotic agents; Z79.899 Other long term (current) drug therapy

== ENCOUNTER → 2020-10-10 | Outpatient (CLI) | payer OTHER ==
[~2020-10-10] MED LIST changes: +ZITHROMAX250 MG PO
== END | disposition home or self-care (01) ==
LOC: US 15:30
PROVIDERS: ATTEND Nurse Practitioner Primary Care
DX: M79.89 Other specified soft tissue disorders (principal); U07.1 COVID-19; R79.89 Other specified abnormal findings of blood chemistry; J18.9 Pneumonia, unspecified organism

== ENCOUNTER → 2020-10-25 | Outpatient (CLI) | payer OTHER | END | disposition home or self-care (01) | LOC: CARD 11:30 | PROVIDERS: ATTEND Nurse Practitioner Primary Care | DX: M79.89 Other specified soft tissue disorders (principal); R79.89 Other specified abnormal findings of blood chemistry; J18.9 Pneumonia, unspecified organism; J44.9 Chronic obstructive pulmonary disease, unspecified; R00.2 Palpitations; U07.1 COVID-19 ==

== ENCOUNTER → 2021-04-16 | Outpatient (CLI) | payer OTHER | END | disposition home or self-care (01) | LOC: MAMMO 13:43 | PROVIDERS: ATTEND Nurse Practitioner Primary Care | DX: N63.0 Unspecified lump in unspecified breast (principal) ==

== ENCOUNTER → 2021-08-27 | Outpatient (CLI) | payer OTHER ==
[2021-08-27 11:58] LABS: BASO % 0.6 % (0.0-1.0); EOS # 0.1 10*3/uL (0.0-0.4); EOS % 1.8 % (1.0-4.0); HEMATOCRIT 42.2 % (37.0-47.0); LYMPH # 1.8 10*3/uL (1.3-4.4); MEAN CELL VOLUME 92.1 fl (81.0-99.0); MEAN CORPUSCULAR HGB 29.9 pg (27.0-31.0); MEAN CORPUSCULAR HGB CONC 32.5 g/dl (33.0-37.0); MEAN PLATELET VOLUME 9.4 fl (9.6-12.3); MONO # 0.5 10*3/uL (0.1-1.0); MONO % 10.7 % (3.0-9.0); NEUT # 2.5 10*3/uL (2.3-7.9); NEUT % 50.5 % (47.0-73.0); PLATELET COUNT AUTOMATED 221 10*3/uL (130-400); RED BLOOD COUNT 4.58 10*6/uL (4.10-5.10)
== END | disposition home or self-care (01) ==
LOC: LAB 11:43
PROVIDERS: ATTEND Nurse Practitioner Primary Care
DX: R07.9 Chest pain, unspecified (principal); R06.02 Shortness of breath; M54.6 Pain in thoracic spine

== ENCOUNTER → 2021-11-14 | Outpatient (CLI) | payer OTHER | END | disposition home or self-care (01) | LOC: RAD 17:21 | PROVIDERS: ATTEND Nurse Practitioner Primary Care | DX: M54.6 Pain in thoracic spine (principal) ==

== ENCOUNTER → 2022-02-12 | Outpatient (CLI) | payer MEDICARE | END | disposition home or self-care (01) | LOC: RAD 12:22 | PROVIDERS: ATTEND Nurse Practitioner Family | DX: M25.561 Pain in right knee (principal) ==

== ENCOUNTER → 2022-02-24 | Outpatient (CLI) | payer MEDICARE ==
[2022-02-24 10:55] LABS: BASO % 0.5 % (0.0-1.0); EOS # 0.2 10*3/uL (0.0-0.4); EOS % 2.8 % (1.0-4.0); HEMATOCRIT 42.2 % (37.0-47.0); MEAN CELL VOLUME 93.8 fl (81.0-99.0); MEAN CORPUSCULAR HGB 29.8 pg (27.0-31.0); MEAN CORPUSCULAR HGB CONC 31.8 g/dl (33.0-37.0); MEAN PLATELET VOLUME 9.5 fl (9.6-12.3); MONO # 0.5 10*3/uL (0.1-1.0); MONO % 8.2 % (3.0-9.0); NEUT # 3.6 10*3/uL (2.3-7.9); NEUT % 57.2 % (47.0-73.0); PLATELET COUNT AUTOMATED 200 10*3/uL (130-400); WHITE BLOOD COUNT 6.4 10*3/uL (4.8-10.8)
[2022-02-24 11:12] LABS: ALKALINE PHOSPHATASE 83 U/L (45-117); BUN 19 mg/dl (7-24); CHLORIDE 107 mmol/L (98-107); CHOLESTEROL 195 mg/dL (<200); CREATININE 0.79 mg/dL (0.55-1.02); IRON 109 ug/dL (50-170); LDL CHOLESTEROL 103 mg/dL (9-159); POTASSIUM 4.5 mmol/L (3.5-5.1); SGOT/AST 18 IU/L (3-35); SGPT/ALT 26 U/L (12-78); SODIUM 141 mmol/L (136-145); TOTAL IRON BINDING CAPACITY 332 ug/dl (250-450); TOTAL PROTEIN 6.7 gm/dL (6.4-8.2); TRIGLYCERIDES 279 mg/dl (<150)
[2022-02-24 11:48] LABS: VITAMIN D, 25-HYDROXY 33.7 ng/mL (30-100)
[2022-02-24 11:49] LABS: FERRITIN 11.1 ng/mL (10.0-291.0)
== END | disposition home or self-care (01) ==
LOC: LAB 10:34
PROVIDERS: ATTEND Nurse Practitioner Family
DX: I10 Essential (primary) hypertension (principal); E03.9 Hypothyroidism, unspecified; E78.2 Mixed hyperlipidemia; D50.9 Iron deficiency anemia, unspecified; E55.9 Vitamin D deficiency, unspecified

== ENCOUNTER → 2022-03-04 | Day surgery (SDC) | payer MEDICARE ==
[~2022-03-04] VITALS: Ht 154.9 cm; Wt 81.6 kg
[2022-03-04 07:30] VITALS: BP 158/70
[2022-03-04 08:10] LABS: BUN 18 mg/dl (7-24); CHLORIDE 108 mmol/L (98-107); CREATININE 0.72 mg/dL (0.55-1.02); POTASSIUM 3.7 mmol/L (3.5-5.1); SODIUM 141 mmol/L (136-145)
[2022-03-04 09:39] VITALS: BP 113/55
[2022-03-04 09:54] VITALS: BP 130/64
[2022-03-04 10:08] VITALS: BP 113/55
== END | disposition home or self-care (01) ==
LOC: SDC 02-28 08:45
PROVIDERS: ATTEND Orthopaedic Surgery
DX: G56.03 Carpal tunnel syndrome, bilateral upper limbs (principal); I10 Essential (primary) hypertension; G25.81 Restless legs syndrome; G47.00 Insomnia, unspecified; E03.9 Hypothyroidism, unspecified; E78.2 Mixed hyperlipidemia; J44.9 Chronic obstructive pulmonary disease, unspecified; E78.00 Pure hypercholesterolemia, unspecified; F41.9 Anxiety disorder, unspecified; F32.9 Major depressive disorder, single episode, unspecified

== ENCOUNTER → 2022-06-12 | Outpatient (CLI) | payer MEDICARE ==
[~2022-06-12] MED LIST changes: +AMBIEN CR6.25 MG PO; +MAG-OXIDE200 MG PO; +RIBOFLAVIN400 MG PO
[2022-06-12 12:03] LABS: BASO % 0.6 % (0.0-1.0); EOS # 0.2 10*3/uL (0.0-0.4); EOS % 2.8 % (1.0-4.0); HEMATOCRIT 43.9 % (37.0-47.0); LYMPH # 1.6 10*3/uL (1.3-4.4); MEAN CELL VOLUME 89.4 fl (81.0-99.0); MEAN CORPUSCULAR HGB 29.7 pg (27.0-31.0); MEAN CORPUSCULAR HGB CONC 33.3 g/dl (33.0-37.0); MEAN PLATELET VOLUME 9.9 fl (9.6-12.3); MONO # 0.5 10*3/uL (0.1-1.0); MONO % 8.8 % (3.0-9.0); NEUT # 3.2 10*3/uL (2.3-7.9); NEUT % 58.2 % (47.0-73.0); PLATELET COUNT AUTOMATED 191 10*3/uL (130-400); RED BLOOD COUNT 4.91 10*6/uL (4.10-5.10); RED CELL DISTRI WIDTH 13.2 % (0-14.5); WHITE BLOOD COUNT 5.4 10*3/uL (4.8-10.8)
[2022-06-12 12:24] LABS: ALKALINE PHOSPHATASE 64 U/L (45-117); BUN 21 mg/dl (7-24); CHLORIDE 111 mmol/L (98-107); CHOLESTEROL 247 mg/dL (<200); CREATININE 0.79 mg/dL (0.55-1.02); LDL CHOLESTEROL 160 mg/dL (9-159); POTASSIUM 4.2 mmol/L (3.5-5.1); SGOT/AST 15 IU/L (3-35); SGPT/ALT 28 U/L (12-78); SODIUM 142 mmol/L (136-145); TOTAL PROTEIN 7.4 gm/dL (6.4-8.2); TRIGLYCERIDES 240 mg/dl (<150)
[2022-06-12 12:31] LABS: THYROID STIM HORMONE (HS) 0.153 uIU/ml (0.358-4.75)
== END | disposition home or self-care (01) ==
LOC: LAB 11:40
PROVIDERS: ATTEND Nurse Practitioner Family
DX: I10 Essential (primary) hypertension (principal); D50.9 Iron deficiency anemia, unspecified; E03.9 Hypothyroidism, unspecified

== ENCOUNTER → 2022-07-29 | Outpatient (CLI) | payer MEDICARE ==
[~2022-07-29] MED LIST changes: +ASPIRIN ADULT L81 M2 PO; +ATENOLOL50 M1 PO; +FLUTICASONE P15.8 ML NAS; +Fioricet 325 MG1 TAB PO; +HYDROXYZINE PAM25 M1 PO; +LEVOTHYROXINE175 MCG PO; +MAGNESIUM OXID400 MG; +MONTELUKAST SOD10 MG PO; +ROPINIROLE HY0.25 MG PO; +SERTRALINE HYD100 MG PO; +TOPIRAMATE25 M3 PO; +ZESTRIL10 MG PO; +ZOLPIDEM TART6.25 MG PO
== END ==
LOC: RAD 11:26
PROVIDERS: ATTEND Nurse Practitioner Family
DX: R05.1 Acute cough (principal); R06.02 Shortness of breath

== ENCOUNTER → 2022-08-20 | Outpatient (CLI) | payer MEDICARE ==
[~2022-08-20] MED LIST changes: +LEVOTHYROXINE137 MCG PO; +REQUIP2 MG PO
== END | disposition home or self-care (01) ==
LOC: CT 01:11
PROVIDERS: ATTEND Internal Medicine Critical Care Medicine
DX: J45.40 Moderate persistent asthma, uncomplicated (principal); R91.1 Solitary pulmonary nodule; I25.10 Atherosclerotic heart disease of native coronary artery without angina pectoris; J30.89 Other allergic rhinitis; Z86.16 Personal history of COVID-19; Z68.35 Body mass index [BMI] 35.0-35.9, adult

== ENCOUNTER 2022-12-14 11:32 | Emergency (ER) | payer MEDICARE ==
[~2022-12-14] VITALS: Ht 154.9 cm; Wt 84.8 kg
[2022-12-14 12:03] VITALS: BP 134/95
[2022-12-14 12:46] LABS: BILIRUBIN Negative (Negative); BLOOD Negative (Negative); CLARITY Clear (Clear); COLOR Yellow (Yellow); GLUCOSE Negative (Negative); KETONE Negative (Negative); LEUKO ESTERASE Negative (Negative); NITRITE Negative (Negative); PH 5.5 (4.5-8.0); UROBILINOGEN 0.2 E.U./dl (0.0-1.0)
[2022-12-14 12:54] LABS: URINE AMPHETAMINES Negative (1000ng/ml); URINE BARBITURATES Negative (200ng/ml); URINE BENZODIAZEPINES Negative (200ng/ml); URINE CANNABINOIDS (THC) Negative (50ng/ml); URINE COCAINE Negative (300ng/ml); URINE METHADONE Negative (300ng/ml); URINE OPIATES Negative (300ng/ml); URINE PHENCYCLIDINE Negative (25ng/ml)
[2022-12-14 13:01] LABS: BASO % 0.7 % (0.0-1.0); EOS # 0.2 10*3/uL (0.0-0.4); EOS % 2.7 % (1.0-4.0); LYMPH # 1.5 10*3/uL (1.3-4.4); LYMPH % 24.5 % (27.0-41.0); MEAN CORPUSCULAR HGB 27.2 pg (27.0-31.0); MEAN CORPUSCULAR HGB CONC 30.2 g/dl (33.0-37.0); MEAN PLATELET VOLUME 10.3 fl (9.6-12.3); MONO # 0.5 10*3/uL (0.1-1.0); MONO % 7.5 % (3.0-9.0); NEUT # 3.9 10*3/uL (2.3-7.9); NEUT % 64.3 % (47.0-73.0); PLATELET COUNT AUTOMATED 202 10*3/uL (130-400); RED BLOOD COUNT 4.78 10*6/uL (4.10-5.10); RED CELL DISTRI WIDTH 14.9 % (0-14.5)
[2022-12-14 13:11] LABS: RBC 0-2 rbc/hpf (0-2); WBC 0-2 wbc/hpf (0-5)
[2022-12-14 13:11] LABS: INTERNATIONAL NORM RATIO 0.9 (2.0-3.5)
[2022-12-14 13:24] LABS: ALKALINE PHOSPHATASE 75 U/L (46-116); BUN 10 mg/dl (9-23); CHLORIDE 108 mmol/L (98-107); POTASSIUM 4.2 mmol/L (3.4-5.1); SGPT/ALT 19 U/L (10-49); THYROID STIM HORMONE (HS) 6.772 uIU/ml (0.550-4.780); TOTAL PROTEIN 6.8 gm/dL (6.0-8.0)
[2022-12-14 13:31] LABS: ETHYL ALCOHOL < 3.0 mg/dl (<3)
== END 2022-12-14 13:48 | disposition home or self-care (01) ==
LOC: ED 11:32
PROVIDERS: Physician Assistant
DX: R94.6 Abnormal results of thyroid function studies (principal); F32.A Depression, unspecified; F41.9 Anxiety disorder, unspecified; I10 Essential (primary) hypertension; J44.9 Chronic obstructive pulmonary disease, unspecified; E78.00 Pure hypercholesterolemia, unspecified; Z88.2 Allergy status to sulfonamides; Z88.1 Allergy status to other antibiotic agents; Z90.49 Acquired absence of other specified parts of digestive tract; Z98.890 Other specified postprocedural states; Z90.710 Acquired absence of both cervix and uterus; Z86.16 Personal history of COVID-19; Z79.899 Other long term (current) drug therapy

== ENCOUNTER → 2023-01-09 | Outpatient (CLI) | payer MEDICARE | END | disposition home or self-care (01) | LOC: RAD 01-02 13:30 | PROVIDERS: ATTEND Internal Medicine Endocrinology, Diabetes & Metabolism | DX: E04.1 Nontoxic single thyroid nodule (principal); M85.851 Other specified disorders of bone density and structure, right thigh; M81.0 Age-related osteoporosis without current pathological fracture ==

== ENCOUNTER → 2023-05-08 | Outpatient (CLI) | payer MEDICARE ==
[~2023-05-08] MED LIST changes: +BENZTROPINE MESY1 MG PO; +SEROQUEL25 MG PO
[2023-05-08 11:15] LABS: BASO % 0.6 % (0.0-1.0); EOS # 0.2 10*3/uL (0.0-0.4); EOS % 3.4 % (1.0-4.0); HEMATOCRIT 38.7 % (37.0-47.0); LYMPH # 1.7 10*3/uL (1.3-4.4); LYMPH % 32.5 % (27.0-41.0); MEAN CELL VOLUME 86.4 fl (81.0-99.0); MEAN CORPUSCULAR HGB 27.7 pg (27.0-31.0); MEAN PLATELET VOLUME 9.9 fl (9.6-12.3); MONO # 0.4 10*3/uL (0.1-1.0); MONO % 8.2 % (3.0-9.0); NEUT # 2.9 10*3/uL (2.3-7.9); NEUT % 54.7 % (47.0-73.0); PLATELET COUNT AUTOMATED 232 10*3/uL (130-400); RED BLOOD COUNT 4.48 10*6/uL (4.10-5.10); RED CELL DISTRI WIDTH 14.2 % (0-14.5); WHITE BLOOD COUNT 5.3 10*3/uL (4.8-10.8)
[2023-05-08 11:48] LABS: VITAMIN D, 25-HYDROXY 30.4 ng/mL (30-100)
[2023-05-08 11:50] LABS: ALKALINE PHOSPHATASE 71 U/L (46-116); BUN 16 mg/dl (9-23); CHLORIDE 106 mmol/L (98-107); CHOLESTEROL 219 mg/dL (<200); FREE T4 0.66 ng/dl (0.89-1.76); LDL CHOLESTEROL 123 mg/dL (9-159); POTASSIUM 4.2 mmol/L (3.4-5.1); SGPT/ALT 12 U/L (10-49); TOTAL PROTEIN 7.1 gm/dL (6.0-8.0); TRIGLYCERIDES 252 mg/dl (<150)
== END | disposition home or self-care (01) ==
LOC: LAB 10:35
PROVIDERS: ATTEND Internal Medicine Endocrinology, Diabetes & Metabolism
DX: E03.9 Hypothyroidism, unspecified (principal); E78.5 Hyperlipidemia, unspecified; E55.9 Vitamin D deficiency, unspecified; E66.9 Obesity, unspecified; R79.89 Other specified abnormal findings of blood chemistry

== ENCOUNTER → 2023-07-31 | Outpatient (CLI) | payer MEDICARE | END | disposition home or self-care (01) | LOC: RAD 14:20 | PROVIDERS: ATTEND Nurse Practitioner Family | DX: M19.012 Primary osteoarthritis, left shoulder (principal) ==

== ENCOUNTER 2023-10-05 12:27 | Emergency (ER) | payer MEDICARE ==
[~2023-10-05] VITALS: Wt 86.2 kg
[2023-10-05 12:40] VITALS: BP 171/80
[2023-10-05 13:21] LABS: BASO # 0.1 10*3/uL (0.0-0.1); EOS # 0.3 10*3/uL (0.0-0.4); EOS % 4.3 % (1.0-4.0); HEMATOCRIT 41.6 % (37.0-47.0); LYMPH # 1.9 10*3/uL (1.3-4.4); LYMPH % 31.2 % (27.0-41.0); MEAN CELL VOLUME 82.2 fl (81.0-99.0); MEAN CORPUSCULAR HGB 24.9 pg (27.0-31.0); MEAN CORPUSCULAR HGB CONC 30.3 g/dl (33.0-37.0); MEAN PLATELET VOLUME 9.6 fl (9.6-12.3); MONO # 0.5 10*3/uL (0.1-1.0); MONO % 8.4 % (3.0-9.0); NEUT # 3.4 10*3/uL (2.3-7.9); NEUT % 54.9 % (47.0-73.0); PLATELET COUNT AUTOMATED 274 10*3/uL (130-400); RED BLOOD COUNT 5.06 10*6/uL (4.10-5.10); RED CELL DISTRI WIDTH 15.9 % (0-14.5); WHITE BLOOD COUNT 6.1 10*3/uL (4.8-10.8)
[2023-10-05 13:43] LABS: ALKALINE PHOSPHATASE 86 U/L (46-116); BUN 10 mg/dl (9-23); CHLORIDE 106 mmol/L (98-107); CPK 172 U/L (34-171); SGPT/ALT 16 U/L (5-49); TOTAL PROTEIN 7.7 gm/dL (6.0-8.0)
[2023-10-05 13:44] LABS: ETHYL ALCOHOL < 3.0 mg/dl (<3)
[2023-10-05 14:25] LABS: BILIRUBIN Negative (Negative); BLOOD Negative (Negative); CLARITY Clear (Clear); COLOR Yellow (Yellow); GLUCOSE Negative (Negative); KETONE Negative (Negative); LEUKO ESTERASE Negative (Negative); NITRITE Negative (Negative); PH 6.5 (4.5-8.0); SPECIFIC GRAVITY 1.015 (1.001-1.030); UROBILINOGEN 0.2 E.U./dl (0.0-1.0)
[2023-10-05 14:33] LABS: URINE AMPHETAMINES Negative (1000ng/ml); URINE BARBITURATES Negative (200ng/ml); URINE BENZODIAZEPINES Negative (200ng/ml); URINE CANNABINOIDS (THC) Negative (50ng/ml); URINE COCAINE Negative (300ng/ml); URINE METHADONE Negative (300ng/ml); URINE OPIATES Negative (300ng/ml); URINE PHENCYCLIDINE Negative (25ng/ml)
[2023-10-05 14:56] LABS: BACTERIA 1+; RBC 0-2 rbc/hpf (0-2)
== END 2023-10-05 20:19 | disposition home or self-care (01) ==
LOC: ED 12:27 → EDHOLD 17:41 → ED 20:19
PROVIDERS: Physician Assistant Medical
DX: G25.71 Drug induced akathisia (principal); F41.9 Anxiety disorder, unspecified; F32.A Depression, unspecified; G43.909 Migraine, unspecified, not intractable, without status migrainosus; J44.9 Chronic obstructive pulmonary disease, unspecified; I10 Essential (primary) hypertension; E78.5 Hyperlipidemia, unspecified; E03.9 Hypothyroidism, unspecified; E78.00 Pure hypercholesterolemia, unspecified; Z88.2 Allergy status to sulfonamides; Z88.8 Allergy status to other drugs, medicaments and biological substances; Z95.5 Presence of coronary angioplasty implant and graft; Z90.49 Acquired absence of other specified parts of digestive tract; Z90.710 Acquired absence of both cervix and uterus; Z98.890 Other specified postprocedural states; Z79.899 Other long term (current) drug therapy; Z20.822 Contact with and (suspected) exposure to COVID-19

== ENCOUNTER → 2023-10-30 | Outpatient (CLI) | payer MEDICARE | END | disposition home or self-care (01) | LOC: MRI 01:11 | PROVIDERS: ATTEND Internal Medicine | DX: M75.102 Unspecified rotator cuff tear or rupture of left shoulder, not specified as traumatic (principal); M25.512 Pain in left shoulder; M19.012 Primary osteoarthritis, left shoulder ==

== ENCOUNTER → 2024-03-03 | Outpatient (CLI) | payer MEDICARE | END | disposition home or self-care (01) | LOC: MRI 13:00 | PROVIDERS: ATTEND Orthopaedic Surgery | DX: S46.811A Strain of other muscles, fascia and tendons at shoulder and upper arm level, right arm, initial encounter (principal); M75.41 Impingement syndrome of right shoulder; M75.51 Bursitis of right shoulder; M19.011 Primary osteoarthritis, right shoulder; X58.XXXA Exposure to other specified factors, initial encounter; Y93.89 Activity, other specified; Y92.89 Other specified places as the place of occurrence of the external cause; Y99.8 Other external cause status ==

== ENCOUNTER → 2024-04-14 | Day surgery (SDC) | payer MEDICARE ==
[2024-04-12 14:52] LABS: BUN 10 mg/dl (9-23); CHLORIDE 104 mmol/L (98-107); POTASSIUM 4.5 mmol/L (3.4-5.1)
[~2024-04-14] VITALS: Ht 154.9 cm; Wt 82.6 kg
[~2024-04-14] MED LIST changes: +AMITRIPTYLINE25 MG PO; +BUPIVACAINE 0.5% 10 ML VIAL ONE; +BUSPIRONE HCL10 MG PO; +Clindamycin Phosphate 50 ML IV ONE; +ENDOCET 5-3251 EACH PO; +EPINEPHrine Hydrochloride 1 MG/ML AMP ONE; +Ketorolac Tromethamine 30 MG/ML VIAL IV ONE; +Lactated Ringer's Solution 1,000 ML IV ONE; +Lactated Ringer's Solution 1,000 ML IV SCH; +METFORMIN HYDR500 MG PO; +Midazolam Hydrochloride 2 MG/2 ML VIAL ONE; +OXYCODONE-ACET1 EAC3 PO; +Ondansetron Hydrochloride 4 MG/2 ML VIAL IV ONE; +PROPOFOL 200 MG/20 ML VIAL IV ONE; +RESTORIL7.5 M1 PO; +SUGAMMADEX SODIUM 200 MG/2 ML VIAL IV ONE
[2024-04-14 11:54] VITALS: BP 136/78
[2024-04-14 15:50] VITALS: BP 116/52
[2024-04-14 16:05] VITALS: BP 111/61
[2024-04-14 16:20] VITALS: BP 133/63
[2024-04-14 16:35] VITALS: BP 125/53
[2024-04-14 17:02] VITALS: BP 134/57
== END | disposition home or self-care (01) ==
LOC: SDC 04-11 14:00
PROVIDERS: ATTEND Orthopaedic Surgery
DX: M19.011 Primary osteoarthritis, right shoulder (principal); M75.41 Impingement syndrome of right shoulder; I10 Essential (primary) hypertension; E78.00 Pure hypercholesterolemia, unspecified; J44.9 Chronic obstructive pulmonary disease, unspecified; F41.9 Anxiety disorder, unspecified; F32.A Depression, unspecified; H40.9 Unspecified glaucoma; G25.81 Restless legs syndrome; G47.00 Insomnia, unspecified; E03.9 Hypothyroidism, unspecified; J45.909 Unspecified asthma, uncomplicated; M19.012 Primary osteoarthritis, left shoulder; Z79.899 Other long term (current) drug therapy; Z90.710 Acquired absence of both cervix and uterus; Z98.890 Other specified postprocedural states

== ENCOUNTER → 2024-04-22 | Outpatient (CLI) | payer MEDICARE ==
[~2024-04-22] MED LIST changes: -BUPIVACAINE 0.5% 10 ML VIAL ONE; -Clindamycin Phosphate 50 ML IV ONE; -EPINEPHrine Hydrochloride 1 MG/ML AMP ONE; -Ketorolac Tromethamine 30 MG/ML VIAL IV ONE; -Lactated Ringer's Solution 1,000 ML IV ONE; -Lactated Ringer's Solution 1,000 ML IV SCH; -Midazolam Hydrochloride 2 MG/2 ML VIAL ONE; -Ondansetron Hydrochloride 4 MG/2 ML VIAL IV ONE; -PROPOFOL 200 MG/20 ML VIAL IV ONE; -SUGAMMADEX SODIUM 200 MG/2 ML VIAL IV ONE
== END | disposition home or self-care (01) ==
LOC: ORTHO 03:24
PROVIDERS: ATTEND Orthopaedic Surgery
DX: M75.41 Impingement syndrome of right shoulder (principal); M19.011 Primary osteoarthritis, right shoulder; Z98.890 Other specified postprocedural states

== ENCOUNTER → 2024-06-02 | Day surgery (SDC) | payer MEDICARE ==
[~2024-06-02] VITALS: Ht 154.9 cm; Wt 82.6 kg
[~2024-06-02] MED LIST changes: +ACETAMINOPHEN 100 ML IV ONE; +BUSPAR5 MG PO; +Bupivacaine Hydrochloride/Ep2 30 ML VIAL ONE; +Dexamethasone Sodium Phospha 4 MG/ML VIAL IV ONE; +EPINEPHrine Hydrochloride 1 MG/ML AMP ONE; +Ketorolac Tromethamine 30 MG/ML VIAL IV ONE; +Lactated Ringer's Solution 1,000 ML IV ONE; +Lactated Ringer's Solution 1,000 ML IV SCH; +Midazolam Hydrochloride 2 MG/2 ML VIAL IV ONE; +Ondansetron Hydrochloride 4 MG/2 ML VIAL IV ONE; +PROPOFOL 200 MG/20 ML VIAL IV ONE; +Phenylephrine Hydrochloride 1 MG/10 ML SYRINGE IV ONE; +Ropivacaine Hydrochloride 5 MG/ML 20 ML AMP IJ ONE; +TEMAZEPAM15 M1 PO; +ceFAZolin sodium/sodium chlor 20 ML IV ONE; +fentaNYL CITRATE 100 MCG/2 ML VIAL IV ONE
[2024-06-02 08:00] VITALS: BP 144/72
[2024-06-02 10:57] VITALS: BP 119/50
[2024-06-02 11:12] VITALS: BP 115/61
[2024-06-02 11:27] VITALS: BP 134/53
[2024-06-02 11:42] VITALS: BP 139/62
[2024-06-02 11:57] VITALS: BP 134/58
== END | disposition home or self-care (01) ==
LOC: SDC 05-31 08:00
PROVIDERS: ATTEND Orthopaedic Surgery
DX: M19.012 Primary osteoarthritis, left shoulder (principal); M75.42 Impingement syndrome of left shoulder; I10 Essential (primary) hypertension; G43.909 Migraine, unspecified, not intractable, without status migrainosus; E03.9 Hypothyroidism, unspecified; E78.00 Pure hypercholesterolemia, unspecified; J44.9 Chronic obstructive pulmonary disease, unspecified; F41.9 Anxiety disorder, unspecified; F32.A Depression, unspecified; G89.18 Other acute postprocedural pain; F10.90 Alcohol use, unspecified, uncomplicated; Z90.710 Acquired absence of both cervix and uterus; Z90.49 Acquired absence of other specified parts of digestive tract; Z98.890 Other specified postprocedural states; Z79.84 Long term (current) use of oral hypoglycemic drugs; Z79.899 Other long term (current) drug therapy; Z88.2 Allergy status to sulfonamides; Z88.1 Allergy status to other antibiotic agents; Z88.8 Allergy status to other drugs, medicaments and biological substances; Z82.49 Family history of ischemic heart disease and other diseases of the circulatory system

== ENCOUNTER → 2024-06-28 | Outpatient (CLI) | payer MEDICARE ==
[~2024-06-28] MED LIST changes: -ACETAMINOPHEN 100 ML IV ONE; -Bupivacaine Hydrochloride/Ep2 30 ML VIAL ONE; -Dexamethasone Sodium Phospha 4 MG/ML VIAL IV ONE; -EPINEPHrine Hydrochloride 1 MG/ML AMP ONE; -Ketorolac Tromethamine 30 MG/ML VIAL IV ONE; -Lactated Ringer's Solution 1,000 ML IV ONE; -Lactated Ringer's Solution 1,000 ML IV SCH; -Midazolam Hydrochloride 2 MG/2 ML VIAL IV ONE; -Ondansetron Hydrochloride 4 MG/2 ML VIAL IV ONE; -PROPOFOL 200 MG/20 ML VIAL IV ONE; -Phenylephrine Hydrochloride 1 MG/10 ML SYRINGE IV ONE; -Ropivacaine Hydrochloride 5 MG/ML 20 ML AMP IJ ONE; -ceFAZolin sodium/sodium chlor 20 ML IV ONE; -fentaNYL CITRATE 100 MCG/2 ML VIAL IV ONE
[2024-06-28 12:21] LABS: BUN 7 mg/dl (9-23); CHLORIDE 105 mmol/L (98-107); CHOLESTEROL 262 mg/dL (<200); LDL CHOLESTEROL 169 mg/dL (9-159); POTASSIUM 4.4 mmol/L (3.4-5.1); TRIGLYCERIDES 215 mg/dl (<150)
[2024-06-28 12:47] LABS: FREE T4 0.76 ng/dl (0.89-1.76)
== END | disposition home or self-care (01) ==
LOC: LAB 11:25
PROVIDERS: ATTEND Internal Medicine
DX: I10 Essential (primary) hypertension (principal); E78.1 Pure hyperglyceridemia; E03.9 Hypothyroidism, unspecified; Z79.899 Other long term (current) drug therapy

== ENCOUNTER → 2024-07-11 | Day surgery (SDC) | payer MEDICARE ==
[~2024-07-11] VITALS: Ht 155 cm; Wt 82.0 kg
[~2024-07-11] MED LIST changes: +ARTHRITIS PAIN650 M3 PO; +LEVOTHYROXINE75 MC1 PO; +Lidocaine Hydrochloride 5 ML VIAL IV ONE; +MELATONIN 3 MG1 EACH PO; +PROPOFOL 200 MG/20 ML VIAL IV ONE; +REXULTI1 MG PO; +TRAZODONE50 MG PO
[2024-07-11 12:53] VITALS: BP 119/47
[2024-07-11 13:11] VITALS: BP 116/74
== END | disposition home or self-care (01) ==
LOC: SDC 07-08 10:15
PROVIDERS: ATTEND Surgery
DX: D50.9 Iron deficiency anemia, unspecified (principal); K64.9 Unspecified hemorrhoids; J44.9 Chronic obstructive pulmonary disease, unspecified; E03.9 Hypothyroidism, unspecified; G25.81 Restless legs syndrome; F32.A Depression, unspecified; E78.00 Pure hypercholesterolemia, unspecified; G43.909 Migraine, unspecified, not intractable, without status migrainosus; F41.9 Anxiety disorder, unspecified; G47.00 Insomnia, unspecified; E11.9 Type 2 diabetes mellitus without complications; Z88.8 Allergy status to other drugs, medicaments and biological substances; Z98.890 Other specified postprocedural states; Z79.899 Other long term (current) drug therapy

== ENCOUNTER → 2024-10-26 | Outpatient (CLI) | payer MEDICARE ==
[~2024-10-26] MED LIST changes: -Lidocaine Hydrochloride 5 ML VIAL IV ONE; -PROPOFOL 200 MG/20 ML VIAL IV ONE
[2024-10-26 16:45] LABS: FREE T4 0.84 ng/dl (0.89-1.76)
== END | disposition home or self-care (01) ==
LOC: LAB 12:14
PROVIDERS: Student in an Organized Health Care Education/Training Program; ATTEND Family Medicine
DX: E03.9 Hypothyroidism, unspecified (principal); E11.9 Type 2 diabetes mellitus without complications